=== PATIENT | male | born 1995 | race Caucasian/White ===

== ENCOUNTER 2025-02-23 19:19 | Emergency (ER) | payer SELFPAY ==
[2025-02-23 19:26] VITALS: BP 121/64; PULSE 72; RESP 16; TEMP 37; O2SAT 100
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
== END 2025-02-23 20:56 | disposition home or self-care (01) ==
PROVIDERS: Emergency Provider Nurse Practitioner
DX: S61.217A Laceration without foreign body of left little finger without damage to nail, initial encounter (principal); S61.215A Laceration without foreign body of left ring finger without damage to nail, initial encounter; S61.213A Laceration without foreign body of left middle finger without damage to nail, initial encounter; W20.8XXA Other cause of strike by thrown, projected or falling object, initial encounter
CPT/HCPCS: 12001; 90471; 99202; G0463; J2003